=== PATIENT | female | born 1970 | race American Indian/Alaskan Native ===

== ENCOUNTER 2018-12-23 10:16 | Emergency (ER) | payer BC, OTHER ==
[2018-12-23 10:32] VITALS: BP 127/55; PULSE 68; TEMP 97.8; BMI 25.7
--- NOTE | 2018-12-23 11:36 | PDOC ---
History of Present Illness - General Chief Complaint: Pain, Acute Stated Complaint: RT HIP PAIN Time Seen by Provider: 12/23/18 11:10 History Source: Patient Exam Limitations: Clinical Condition - History of Present Illness Initial Comments: 12/23/18 11:32 Patient with history of osteoarthritis present with complaint of right hip and groin pain which has been worsening since last night. Patient reported increased pain with ambulation. Patient reported she has similar episode of the left hip 2 years ago and was found to have fluid in the pelvic on CAT scan and had to have aspiration done which relieved her symptoms. Patient denies fever, chills, body aches. Patient denies trauma or injury to hip. She denies urinary symptoms Timing/Duration: 24 hours Past History - Past Medical History Allergies/Adverse Reactions: Allergies Allergy/AdvReac Type Severity Reaction Status Date / Time meloxicam [From [employer]] Allergy Verified 12/23/18 10:27 Home Medications: Ambulatory Orders Oxycodone HCl/Acetaminophen [Percocet 5-325 mg Tablet] 1 tab PO Q6H #5 tablet MDD 3 12/23/18 COPD: No Other medical history: ARTHIRITIS - Immunization History Immunization Up to Date: Yes - Suicide/Smoking/Psychosocial Hx Smoking History: Never smoked Information on smoking cessation initiated: No Hx Alcohol Use: No Drug/Substance Use Hx: No Review of Systems - Review of Systems Able to Perform ROS?: Yes Is the patient limited Arabic proficient: No Constitutional: No: Chills, Fever, Malaise, Weakness HEENTM: No: Symptoms Reported Respiratory: No: Symptoms reported Cardiac (ROS): No: Symptoms Reported ABD/GI: No: Nausea, Vomiting : No: Burning, Discharge, Frequency, Flank Pain, Urgency Musculoskeletal: Yes: See HPI, Joint Pain (right hip), Muscle Pain (right hip and groin) Neurological: No: Numbness, Paresthesia, Tingling All Other Systems: Reviewed and Negative *Physical Exam - Vital Signs Last Vital Signs Temp Pulse Resp BP Pulse Ox 97.8 F 68 17 127/55 L 100 12/23/18 10:27 12/23/18 10:27 12/23/18 10:27 12/23/18 10:27 12/23/18 10:27 - Physical Exam Comments: 12/23/18 11:34 GENERAL: Well developed, well nourished. Awake and alert. No acute distress. CARDIOVASCULAR: Regular rate and rhythm. No murmurs, rubs, or gallops. PULMONARY: No evidence of respiratory distress. Lungs clear to auscultation bilaterally. No wheezing, rales or rhonchi. ABDOMINAL: Soft. Non-tender. Non-distended. No rebound or guarding. No organomegaly. Normoactive bowel sounds MUSCULOSKELETAL : mild tenderness over ASIS bone and groin area which is worse with eversion of right thigh. No bony deformities EXTREMITIES: No cyanosis. No clubbing. No edema. No calf tenderness. SKIN: Warm and dry. Normal capillary refill. No rashes. No jaundice. NEUROLOGICAL: Alert, awake, appropriate. No motor deficits in the lower extremities. Gait is normal without ataxia. PSYCHIATRIC: Cooperative. Good eye contact. Appropriate mood and affect. General Appearance: Yes: Nourished, Appropriately Dressed. No: Apparent Distress Moderate Sedation - Procedure Monitoring Vital Signs: Procedure Monitoring Vital Signs Temperature 97.8 F 12/23/18 10:27 Pulse Rate 68 12/23/18 10:27 Respiratory Rate 17 12/23/18 10:27 Blood Pressure 127/55 L 12/23/18 10:27 O2 Sat by Pulse Oximetry (%) 100 12/23/18 10:27 ED Treatment Course - RADIOLOGY Radiology Studies Ordered: Category Date Time Status HIP & PELVIS-RIGHT [RAD] Stat Radiology 12/23/18 11:27 Ordered Medical Decision Making - Medical Decision Making 12/23/18 12:33 Patient with history of cervical arthritis present with complaint of right hip pain which has been worsening with ambulation. Patient report history of right hip fluid was similar symptoms 2 years ago needing aspiration. Exam significant for tenderness to right groin area and ASIS which is worse with eversion of right thigh. X-ray of right hip shows no acute pathology. CT scan of right hip ordered to rule out hip fracture or cyst. test negative. Patient will be discharged home on NSAIDs if negative CT with orthopedics follow-up. 12/23/18 13:49 CT scan of the hip shows no acute pathology. Patient is stable for discharge with pain medication as needed with orthopedist follow-up. *DC/Admit/Observation/Transfer Diagnosis at time of Disposition: Right hip pain, Arthritis of hip - Discharge Dispostion Disposition: HOME Condition at time of disposition: Stable Decision to Admit order: No - Prescriptions Prescriptions: Oxycodone HCl/Acetaminophen [Percocet 5-325 mg Tablet] 1 tab PO Q6H #5 tablet MDD 3 - Referrals Referrals: Gilmer Quan DO [Staff Physician] - - Patient Instructions Printed Discharge Instructions: Help for Hip Pain, DI for Hip Bursitis Additional Instructions: Take medication as prescribed for hip pain. Follow-up referred to orthopedics. Call orthopedist office today for follow-up appointment for possible tomorrow or next day. - Post Discharge Activity Forms/Work/School Notes: Back to Work
[2018-12-23] MEDS ORDERED: KETOROLAC TROMETHAMINE 60 MG/2 ML VIAL IM ONE (12:04)
[2018-12-23] MEDS ORDERED: KETOROLAC TROMETHAMINE 60 MG/2 ML VIAL ONE (12:08)
== END 2018-12-23 13:59 | disposition home or self-care (01) ==
LOC: JERFT 10:16 → JER 10:16 → JERFT 13:59
PROC: 3E0233Z Introduction of Anti-inflammatory into Muscle, Percutaneous Approach (ICD-10-PCS; principal; 2018-12-23)
DX: M13.851 Other specified arthritis, right hip (principal)
CPT/HCPCS: 73523-TC-FY; 73700-TC-RT; 84703; 99281-25

== ENCOUNTER 2024-05-02 04:40 | Day surgery (SDC) | payer BC, OTHER ==
[2024-04-29 11:44] VITALS: BMI 19.3
[2024-05-02] MEDS ORDERED: KETOROLAC TROMETHAMINE 30 MG/1 ML VIAL ONE (07:22)
[2024-05-02] MEDS ORDERED: LIDOCAINE HCL/PF 2% SDV 5ML VIAL ONE (07:22)
[2024-05-02] MEDS ORDERED: METOCLOPRAMIDE HCL INJECTION 10 MG/2 ML VIAL ONE (07:22)
[2024-05-02] MEDS ORDERED: ceFAZolin SODIUM 1 GM VIAL ONE (07:22)
[2024-05-02] MEDS ORDERED: DEXAMETHASONE SOD PHOSPHATE 4 MG/1 ML VIAL ONE ×2 (07:22→08:51)
[2024-05-02] MEDS ORDERED: ONDANSETRON 4 MG/2 ML VIAL ONE ×2 (07:22→08:51)
[2024-05-02] MEDS ORDERED: SUCCINYLCHOLINE CHLORIDE 200 MG/10 ML SYRINGE ONE (07:23)
[2024-05-02] MEDS ORDERED: ACETAMINOPHEN INJECTION 100 ML IVPB ONE (07:23)
[2024-05-02] MEDS ORDERED: ROCURONIUM BROMIDE 50 MG/5 ML SYRINGE ONE ×2 (07:24→08:57)
[2024-05-02] MEDS ORDERED: BUPIVACAINE HCL/PF 0.5% (5MG/ML) 10 ML VIAL ONE (07:53)
[2024-05-02] MEDS ORDERED: ONDANSETRON 4 MG/2 ML VIAL IVPUSH PRN (08:27)
[2024-05-02] MEDS ORDERED: oxyCODONE HCL 5 MG TABLET PO PRN (08:27)
[2024-05-02] MEDS ORDERED: MIDAZOLAM HCL 2 MG/2 ML SINGLE DOSE VIAL ONE (08:51)
[2024-05-02] MEDS ORDERED: PROPOFOL 40 ML ONE (08:52)
[2024-05-02] MEDS: ceFAZolin SODIUM 1 GM VIAL IVPB ONE (09:21)
[2024-05-02] MEDS: BUPIVACAINE HCL/PF 0.5% (5MG/ML) 10 ML VIAL IJ ONE (09:24)
[2024-05-02] MEDS ORDERED: HYDROmorphone HCl 2 MG/ML VIAL ONE (09:26)
[2024-05-02] MEDS ORDERED: SUGAMMADEX SODIUM 200 MG/2 ML VIAL ONE (11:09)
[2024-05-02] MEDS: LACTATED RINGERS SOLUTION 1,000 ML IV SCH (12:08)
[2024-05-02 14:19] VITALS: RESP 18
[2024-05-02] MEDS ORDERED: oxyCODONE HCL 5 MG TABLET ONE (14:25)
[2024-05-02] MEDS: oxyCODONE HCL 5 MG TABLET PO PRN (14:30)
[2024-05-02 16:57] VITALS: BP 103/54; PULSE 69; TEMP 97.8
== END 2024-05-02 16:40 | disposition home or self-care (01) ==
LOC: JASU-SURG 04:40
PROVIDERS: ATTEND Surgery
PROC: 8E0W4CZ Robotic Assisted Procedure of Trunk Region, Percutaneous Endoscopic Approach (ICD-10-PCS; 2024-05-02)
PROC: 0WUF4JZ Supplement Abdominal Wall with Synthetic Substitute, Percutaneous Endoscopic Approach (ICD-10-PCS; principal; 2024-05-02 08:00)
DX: K42.0 Umbilical hernia with obstruction, without gangrene (principal)
CPT/HCPCS: 49594; S2900; 86850; 86900; 86901; 94760; C1781; J0131